=== PATIENT | female | born 1975 | race Caucasian/White ===

== ENCOUNTER 2019-12-20 14:14 | Emergency (ER) | payer BC, SELFPAY ==
--- NOTE | ~2019-12-20 | XR_ITS ---
XR chest 2V DATE: 12/20/2019 15:27 INDICATION: Shortness of breath today. Palpitations for one week. TECHNIQUE: PA and lateral views COMPARISON: None FINDINGS: Normal heart size. No hilar or mediastinal enlargement. No pulmonary infiltrate or consolid ation, pleural effusion or pulmonary vascular congestion or pneumothorax. IMPRESSION: No active cardiopulmonary disease Reviewed, dictated and finalized at location B.
--- NOTE | 2019-12-20 14:15 | ECG_ITS ---
Measurements Intervals [place] Rate: 94 P: 34 NV: 166 QRS: 8 QRSD: 83 T: 33 QT: 350 QTc: 439 Interpretive Statements SINUS RHYTHM LEFT VENTRICULAR HYPERTROPHY WITH ST-T CHANGE BORDERLINE ECG Electronically Signed On 12-20-2019 15:32:01 CDT by Bhupendra Zamora D.O.
[2019-12-20 14:18] VITALS: BP 164/100; PULSE 102; RESP 19; TEMP 36.3; O2SAT 99
--- NOTE | 2019-12-20 14:38 | PC.NURSE ---
Attempts x3 for IV site unsuccessful for this RN.
[2019-12-20 14:52] VITALS: BP 124/67; PULSE 91; RESP 14; O2SAT 97
[2019-12-20 15:11] LABS: Basophils Percent Auto 0.3 % (0.2-1.2); Eosinophils Absolute Auto 0.1 K/mm3 (0-0.3); Eosinophils Percent Auto 0.8 % (0-4.4); Hematocrit 39.1 % (37.0-47.0); Immature Granulocyte Absolute 0.05 K/mm3 (0.00-0.031); Immature Granulocyte Percent A 0.4 % (0-0.5); Lymphocytes Absolute Auto 3.31 K/mm3 (0.9-3.2); Lymphocytes Percent Auto 23.4 % (18.3-44.2); Mean Corpuscular HGB Conc 33.2 g/dl (32-36); Mean Corpuscular Hemoglobin 30.4 pg (26-34); Mean Corpuscular Volume 91.6 fl (80-100); Mean Platelet Volume 10.7 fl (7.4-10.4); Monocytes Absolute Auto 0.7 K/mm3 (0.1-0.6); Monocytes Percent Auto 5.2 % (2.6-8.5); Neutrophils Absolute Auto 9.9 K/mm3 (1.3-6.7); Neutrophils Percent Auto 69.9 % (45.5-73.1); Platelet Count Result 391 k/mm3 (150-375); Red Blood Count 4.27 M/mm3 (4.2-5.4); Red Cell Distribution Width 12.8 % (11.5-14.5); White Blood Count 14.2 K/mm3 (4.5-10.0)
[2019-12-20 15:23] LABS: Add Urine Microscopic? NO; Appearance Urine Clear (Clear); Bacteria Urine Trace /hpf; Bilirubin Urine Negative (Negative); Blood Urine Negative (Negative); Color Urine Colorless (Yellow); Glucose Urine UA Negative (Negative); Ketones Urine Negative (Negative); Leukocyte Esterase Ur Negative LEU/UL (Negative); Nitrate Urine Negative (Negative); Protein Urine Negative (Negative); Specific Grav Ur 1.006 (1.001-1.035); Squamous Epithelial Cell Urine Few /hpf (Few); Urobilinogen Urine Negative mg/dL (<2.0); WBC Urine 0-3 /hpf
[2019-12-20 15:25] LABS: Anion Gap 13.8 mmol/L (7-16); Blood Urea Nitrogen 11 mg/dL (7-17); Calcium 9.6 mg/dL (8.4-10.2); Carbon Dioxide 27 mmol/L (22-30); Chloride 100 mmol/L (98-107); Estimated CRCL calculation 86 ml/min; Estimated Glomerular Filt Rate > 60; Glucose 141 mg/dL (65-105); Magnesium 1.6 mg/dL (1.6-2.3); Potassium 3.8 mmol/L (3.4-5.0); Sodium 137 mmol/L (137-145)
--- NOTE | 2019-12-20 17:13 | ED.ARRPALP ---
HPI - Arrhythmia/Palpitations General Chief Complaint: Arrhythmia/Palpitations Stated Complaint: RAPID HEARTRATE, SOB Time Seen by Provider: 12/20/19 14:16 History of Present Illness HPI narrative: Patient is a 44-year-old female who presents the ER with palpitations. Patient reports earlier today she had tachycardia at a rate of 120 bpm. Give her some chest tightness but no chest pain. She has had intermittent symptoms like this throughout the week. No association with stress. No fevers or chills or sweats. She does have productive cough. No syncope. Related Data Home Medications Medication Instructions Recorded Confirmed albuterol sulfate [ProAir HFA] INHALATION 12/20/19 aspirin 81 mg PO DAILY 12/20/19 fluticasone propionate [Flonase 1 spray INTRANASAL BID 12/20/19 Allergy Relief] lansoprazole [Prevacid] 30 mg PO DAILY 12/20/19 metformin mg PO 12/20/19 multivit with min-folic acid mg PO 12/20/19 [Adult One Daily Multivitamin] Allergies Allergy/AdvReac Type Severity Reaction Status Date / Time butorphanol Allergy Unknown Nausea and Verified 12/20/19 14:21 Vomiting erythromycin base Allergy Unknown Nausea and Verified 12/20/19 14:21 Vomiting nalbuphine Allergy Unknown Nausea and Verified 12/20/19 14:21 Vomiting Review of Systems Review of Systems: All systems reviewed & are unremarkable except as noted in HPI and below Constitutional: Constitutional: Denies chills, Denies fatigue and Denies fever(s) ENT: Denies nasal congestion and Denies sore throat Cardiovascular: Cardiovascular: Denies chest pain, Reports rapid heart rate and Denies radiating jaw, neck or arm pain Respiratory: Respiratory: Denies cough, Reports dyspnea and Denies wheezing Gastrointestinal: Gastrointestinal: Denies abdominal pain, Denies nausea and Denies vomiting ON LICENSE OF [facility] Past Medical History Medical History (Updated 12/20/19 @ 17:18 by Matias Gonzalez MD) Diabetes Surgical History Surgical History (Updated 12/20/19 @ 17:15 by Matias Gonzalez MD) No pertinent past surgical history Family History Family History (Updated 12/12/15 @ 23:19 by DOCTOR UNKNOWN) Mother Family history of diabetes mellitus in first degree relative Family history of heart disease in male family member before age 55 Father Family history of lung cancer Family history of heart disease in male family member before age 55 Sibling Family history of congestive heart failure Other Hypertension Social History Social History Smoking status: Never smoker Alcohol intake: current Gender identity (if verbalized by the patient): Female Exam Narrative: Exam Narrative: GENERAL: Well-appearing, overweight, and in no acute distress. HEAD: Normocephalic, atraumatic. ENT: Mucous membranes moist. CHEST: Clear to auscultation. No respiratory distress. HEART: Regular rate and rhythm. Normal peripheral pulses. ABDOMEN: Soft, nontender, nondistended. EXTREMITIES: Normal range of motion. No edema. SKIN: Warm, dry, no rash. NEURO: Alert and oriented x3. Course Course Emergency Course: Patient resting comfortably without issue here. Unremarkable labs and x-ray. Recommend follow-up with PCP for possible Holter monitoring given recurrent nature of symptoms. Vital Signs Vital signs: Vital Signs Temperature 97.4 F L 12/20/19 14:18 Pulse Rate 102 H 12/20/19 14:18 Respiratory Rate 19 12/20/19 14:18 Blood Pressure 164/100 H 12/20/19 14:18 Pulse Oximetry 99 12/20/19 14:18 Temperature 97.4 F L 12/20/19 14:18 Pulse Rate 91 12/20/19 14:52 Respiratory Rate 14 12/20/19 14:52 Blood Pressure 124/67 12/20/19 14:52 Pulse Oximetry 97 12/20/19 14:52 MDM - Arrhythmia/Palpitations Lab Data Result diagrams: 12/20/19 15:00 12/20/19 15:00 Labs: Lab Results 12/20/19 12/20/19 12/20/19 Range/Units 15:00 15:00 15:00 WBC 14.2 H (4.5-10.0) K/mm3 RBC 4.2
[2019-12-20 18:02] VITALS: BP 100/67; PULSE 86; RESP 13; O2SAT 98
== END 2019-12-20 18:03 | disposition home or self-care (01) ==
PROVIDERS: Emergency Provider Emergency Medicine; PCP Family Medicine
DX: R00.2 Palpitations (principal); E11.9 Type 2 diabetes mellitus without complications; Z79.82 Long term (current) use of aspirin; Z79.84 Long term (current) use of oral hypoglycemic drugs; I51.7 Cardiomegaly
CPT/HCPCS: 36415; 71046; 80048; 81003; 83735; 84443; 85025; 93005; 99283

== ENCOUNTER 2020-07-24 10:01 | Outpatient (CLI) | payer BC, SELFPAY ==
--- NOTE | ~2020-07-24 | US_ITS ---
EXAMINATION: US venous doppler LE RT DATE: 07/24/2020 10:45 INDICATION: Right calf pain. TECHNIQUE: Grayscale ultrasound images without and with compression and Doppler ultrasound images of the right lower extremity veins were obtained. COMPARISON: None. FINDINGS: The visualized portions of right common femoral vein, profunda (deep) femoral vein, femoral vein, pop liteal vein, peroneal veins, posterior tibial veins, and greater saphenous vein outflow are patent. IMPRESSION: 1. No deep venous thrombosis. Reviewed, dictated and finalized at location A. P MACHINE OPERATOR
[2020-07-24 11:56] LABS: Hemoglobin 12.6 g/dL (12.0-15.0); Mean Corpuscular HGB Conc 32.3 g/dl (32-36); Mean Corpuscular Hemoglobin 29.8 pg (26-34); Mean Corpuscular Volume 92.2 fl (80-100); Mean Platelet Volume 10.7 fl (7.4-10.4); Platelet Count Result 377 k/mm3 (150-375); Red Blood Count 4.23 M/mm3 (4.2-5.4); Red Cell Distribution Width 13.2 % (11.5-14.5); White Blood Count 12.8 K/mm3 (4.5-10.0)
[2020-07-24 12:11] LABS: Alanine Aminotransferase 14 U/L (4-35); Albumin Level 4.1 g/dL (3.5-5.1); Alkaline Phosphatase 100 U/L (38-126); Anion Gap 12 mmol/L (8-16); Aspartate Amino Transferase 21 U/L (14-36); Bilirubin,Total 0.3 mg/dL (0.2-1.3); Blood Urea Nitrogen 9 mg/dL (7-17); Calcium 8.9 mg/dL (8.4-10.2); Carbon Dioxide 23 mmol/L (22-30); Chloride 106 mmol/L (98-107); Estimated Glomerular Filt Rate > 60; Glucose 103 mg/dL (65-105); Potassium 3.8 mmol/L (3.4-5.0); Sodium 141 mmol/L (137-145)
[2020-07-24 12:13] LABS: D Dimer 0.27 ug/mL (<0.48)
== END 2020-07-24 10:02 | disposition home or self-care (01) ==
LOC: ANHIMG 10:10
PROVIDERS: PCP Family Medicine; Visit Provider Nurse Practitioner Family
DX: M79.661 Pain in right lower leg (principal)
CPT/HCPCS: 36415; 80053; 85027; 85380; 93971

== ENCOUNTER → 2020-11-11 15:14 | Outpatient (CLI) | payer BC, SELFPAY ==
--- NOTE | ~2020-11-11 | MM_ITS ---
EXAMINATION: MM screening [facility] BI w [facility] HISTORY: Screening TECHNIQUE: Craniocaudal and mediolateral oblique 3-D tomosynthesis images were obtained and synthetic 2-D images were generated. CAD analysis was submitted and interpreted. COMPARISON: No prior mammogram is available for comparison at this institution. BREAST PARENCHYMAL COMPOSITION: There are scattered areas of fibroglandular density. FINDINGS: There is no evidence of suspicious mass, calcification, or architectural distortion to sugg est malignancy in either breast. There has been no suspicious interval change. IMPRESSION: 1. No mammographic evidence of malignancy. 2. Recommend routine screening mammography in one year. BI-RADS Category 1: Negative Reviewed, dictated and finalized at location A.
== END ==
PROVIDERS: Visit Provider Obstetrics & Gynecology
DX: Z12.31 Encounter for screening mammogram for malignant neoplasm of breast (principal)
CPT/HCPCS: 77063; 77067

== ENCOUNTER 2022-04-18 10:57 | Emergency (ER) | payer BC, SELFPAY ==
--- NOTE | 2022-04-18 11:08 | ED.URI ---
HPI - URI/Sore Throat General Chief Complaint: Upper Respiratory Infection Stated Complaint: sore throat cough congestion Time Seen by Provider: 04/18/22 11:08 Source: patient and RN notes reviewed History of Present Illness HPI Narrative: patient is a 7-year-old female who presents to the Urgent Care with complaints of sore throat, cough and congestion. Patient states that she has had a cough for approximately 7 days in the sore throat started yesterday. Patient denies any ill exposures. Denies any recent fevers, nausea, vomiting, headache. Patient has been using Tessalon Perles, NyQuil and DayQuil. No other acute complaints. No acute distress noted. Patient aware of the plan of care. Some parts of this dictation were generated by voice recognition software and may contain typographical and/or grammatical inaccuracies. Related Data Home Medications Medication Instructions Recorded Confirmed metformin 500 mg tablet,extended 500 mg PO DAILY 12/20/19 04/18/22 release 24 hr Allergies Allergy/AdvReac Type Severity Reaction Status Date / Time butorphanol Allergy Unknown Nausea and Verified 04/18/22 11:21 Vomiting erythromycin base Allergy Unknown Nausea and Verified 04/18/22 11:21 Vomiting nalbuphine Allergy Unknown Nausea and Verified 04/18/22 11:21 Vomiting Review of Systems Review of Systems: CONSTITUTIONAL: Reports of chills EYES: Denies visual changes, redness, or discharge. ENT: reports nasal congestion and sore throat CARDIOVASCULAR: Denies chest pain, palpitations, or edema. RESPIRATORY: reports of cough GASTROINTESTINAL: Denies abdominal pain, nausea, vomiting, or diarrhea. GENITOURINARY: Denies dysuria or hematuria. SKIN: Denies rash or itching. MUSCULOSKELETAL: Denies back pain, joint pain, or myalgia. NEUROLOGIC: Denies headache, numbness, or weakness. All other systems reviewed are negative, except as documented in HPI. [facility] Past Medical History Medical History (Updated 04/18/22 @ 11:45 by SMITH Longo) Diabetes Surgical History Surgical History (Updated 12/20/19 @ 17:15 by Matias Gonzalez MD) No pertinent past surgical history Family History Family History (Updated 12/12/15 @ 23:19 by DOCTOR UNKNOWN) Mother Family history of diabetes mellitus in first degree relative Family history of heart disease in male family member before age 55 Father Family history of lung cancer Family history of heart disease in male family member before age 55 Sibling Family history of congestive heart failure Other Hypertension Social History Social History Smoking status: Never smoker Alcohol intake: current Gender identity (if verbalized by the patient): Female Comments At the time of my signature, I reviewed and agree with the nursing past medical, surgical, social, and family history. There is no relevant family history pertinent to the patient complaint. Exam Narrative: GENERAL: This is a well-nourished, well-developed patient, in no apparent distress. HEAD: normocephalic, atraumatic. EYES: PERRL. Sclera clear/white. Vision is grossly intact. EARS: External ears normal, auditory canals clear and without drainage, TMs normal without perforation. Hearing grossly intact. NOSE: External nose normal with no obvious nasal discharge, nares without redness, Clear rhinorrhea. THROAT: Mucous membranes moist, moderate erythema to posterior pharynx with mild to moderate bilateral tonsillar edema and bilateral exudate. Moderate postnasal drainage. NECK: Neck supple, non-tender without lymphadenopathy CARDIOVASCULAR: Regular rate and rhythm without murmurs, gallops, or rubs. RESPIRATORY: Clear to auscultation. Breath sounds equal bilaterally. No wheezes, rales, or rhonchi. SKIN: warm, intact with no suspicious lesions or rash, good texture and turgor. NEURO: awake, alert, and oriented to person, place and time. There were no obvious focal neurolog
[2022-04-18 11:12] VITALS: BP 115/98; PULSE 85; RESP 20; TEMP 36.3; O2SAT 98
== END 2022-04-18 11:47 | disposition home or self-care (01) ==
PROVIDERS: Emergency Provider Nurse Practitioner Family; PCP Family Medicine
DX: J03.90 Acute tonsillitis, unspecified (principal); E11.9 Type 2 diabetes mellitus without complications
CPT/HCPCS: 99213; G0463

== ENCOUNTER → 2023-04-05 15:11 | Outpatient (CLI) | payer BC, SELFPAY ==
--- NOTE | ~2023-04-05 | MM_ITS ---
EXAMINATION: MM screening [facility]ie BI w [facility] HISTORY: Screening mammogram TECHNIQUE: Craniocaudal and mediolateral oblique 3-D tomosynthesis images were obtained and synthetic 2-D images were generated. CAD analysis was submitted and interpreted. COMPARISON: 11/11/2020 bilateral screening mammogram BREAST PARENCHYMAL COMPOSITION: The breasts are almost entirely fatty. FINDINGS: There is no evidence of suspicious mass, calcification, or architectural distortion to sugg est malignancy in either breast. There has been no suspicious interval change. IMPRESSION: 1. No mammographic evidence of malignancy. 2. Recommend routine screening mammography in one year. BI-RADS Category 1: Negative Reviewed, dictated and finalized at location A. LE APPLICATION ENGINEER
== END ==
PROVIDERS: PCP Family Medicine; Visit Provider Family Medicine
DX: Z12.31 Encounter for screening mammogram for malignant neoplasm of breast (principal)
CPT/HCPCS: 77063; 77067

== ENCOUNTER 2024-01-17 15:40 | Outpatient (CLI) | payer BC, SELFPAY ==
[2024-01-17 16:08] LABS: Basophils Absolute Auto 0.1 K/mm3 (0.0-0.1); Basophils Percent Auto 0.6 % (0.2-1.2); Eosinophils Absolute Auto 0.2 K/mm3 (0-0.3); Eosinophils Percent Auto 1.8 % (0-4.4); Hematocrit 35.1 % (37.0-47.0); Hemoglobin 10.9 g/dL (12.0-15.0); Immature Granulocyte Absolute 0.03 K/mm3 (0.00-0.031); Immature Granulocyte Percent A 0.3 % (0-0.5); Lymphocytes Absolute Auto 4.13 K/mm3 (0.9-3.2); Lymphocytes Percent Auto 34.5 % (18.3-44.2); Mean Corpuscular HGB Conc 31.1 g/dl (32-36); Mean Corpuscular Hemoglobin 27.6 pg (26-34); Mean Corpuscular Volume 88.9 fl (80-100); Mean Platelet Volume 10.2 fl (7.4-10.4); Monocytes Absolute Auto 0.9 K/mm3 (0.1-0.6); Monocytes Percent Auto 7.4 % (2.6-8.5); Neutrophils Absolute Auto 6.7 K/mm3 (1.3-6.7); Neutrophils Percent Auto 55.4 % (45.5-73.1); Platelet Count Result 479 k/mm3 (150-375); Red Blood Count 3.95 M/mm3 (4.2-5.4); Red Cell Distribution Width 14.7 % (11.5-14.5)
[2024-01-17 16:41] LABS: Iron 39 ug/dL (37-170)
[2024-01-17 16:48] LABS: Alanine Aminotransferase 19 U/L (6-35); Albumin Level 4.5 g/dL (3.5-5.1); Alkaline Phosphatase 86 U/L (38-126); Anion Gap 12 mmol/L (4-12); Aspartate Amino Transferase 25 U/L (14-36); Bilirubin,Total 0.2 mg/dL (0.2-1.3); Blood Urea Nitrogen 11 mg/dL (7-17); CRP < 0.5 mg/dL (<1.0); Calcium 9.3 mg/dL (8.4-10.2); Carbon Dioxide 28 mmol/L (22-30); Chloride 98 mmol/L (98-107); Estimated Glomerular Filt Rate > 60; Glucose 134 mg/dL (65-110); Sodium 138 mmol/L (137-145)
[2024-01-17 16:50] LABS: Percent Iron Saturation 8 % (20-50)
[2024-01-17 16:56] LABS: Erythrocyte Sedimentation Rate 25 mm/hr (0-20)
[2024-01-17 17:19] LABS: Ferritin 6.24 ng/mL (11.1-264)
[2024-01-17 18:13] LABS: Folic Acid > 20.0 ng/mL (2.76->20)
== END 2024-01-17 15:41 | disposition home or self-care (01) ==
LOC: ANHLAB 15:41
PROVIDERS: PCP Family Medicine; Visit Provider Internal Medicine Hematology & Oncology
DX: D72.829 Elevated white blood cell count, unspecified (principal); D64.9 Anemia, unspecified
CPT/HCPCS: 36415; 80053; 82607; 82728; 82746; 83540; 83550; 85025; 85652; 86140; 88184

== ENCOUNTER 2024-04-06 15:59 | Outpatient (CLI) | payer BC, SELFPAY ==
--- NOTE | ~2024-04-06 | MM_ITS ---
EXAMINATION: MM screening [facility]ie BI w [facility] HISTORY: Screening mammogram TECHNIQUE: Craniocaudal and mediolateral oblique 3-D tomosynthesis images were obtained and synthetic 2-D images were generated. CAD analysis was submitted and interpreted. COMPARISON: 03/16/2023, 11/11/2020 bilateral screening mammogram examinations BREAST PARENCHYMAL COMPOSITION: The breasts are almost entirely fatty. FINDINGS: There is no evidence of suspicious mass, calcification, or architectural distortion to sugg est malignancy in either breast. There has been no suspicious interval change. IMPRESSION: 1. No mammographic evidence of malignancy. 2. Recommend routine screening mammography in one year. BI-RADS Category 1: Negative Reviewed, dictated and finalized at location A. R FABRICATOR
== END 2024-04-06 16:00 | disposition home or self-care (01) ==
LOC: MICIMG 16:00
PROVIDERS: PCP Family Medicine; Visit Provider Family Medicine
DX: Z12.31 Encounter for screening mammogram for malignant neoplasm of breast (principal)
CPT/HCPCS: 77063; 77067

== ENCOUNTER 2025-04-08 15:08 | Outpatient (CLI) | payer BC, SELFPAY ==
--- NOTE | ~2025-04-08 | MM_ITS ---
EXAMINATION: MM screening [facility] BI w [facility] HISTORY: Screening TECHNIQUE: Craniocaudal and mediolateral oblique 3-D tomosynthesis images were obtained and synthetic 2-D images were generated. CAD analysis was submitted and interpreted. COMPARISON: Comparison to multiple prior studies sequentially, with oldest reviewed study dated 11/11/2020. BREAST PARENCHYMAL COMPOSITION: Not Dense: The breasts are almost entirely fatty. FINDINGS: There is no evidence of suspicious mass, calcification, or architectural distortion to suggest malignancy in either breast. There has been no suspicious interval change. IMPRESSION: 1. No mammographic evidence of malignancy. 2. Recommend routine screening mammography in one year. BI-RADS Category 1: Negative Reviewed, dictated and finalized at location O. RWATER ROBOTICIST
== END 2025-04-08 15:09 | disposition home or self-care (01) ==
PROVIDERS: PCP Family Medicine; Visit Provider Obstetrics & Gynecology
DX: Z12.31 Encounter for screening mammogram for malignant neoplasm of breast (principal)
CPT/HCPCS: 77063; 77067